=== PATIENT | female | born 1985 | race American Indian/Alaskan Native ===

== ENCOUNTER 2017-10-02 11:40 | Emergency (ER) | payer MEDICAID ==
[2017-10-02 11:54] VITALS: RESP 16
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
[2017-10-02 12:32] LABS: BASO # 0.1 K/uL (0.0-0.2); BASO % 0.9 % (0.0-2.0); EOS # 0.1 K/uL (0.0-0.7); EOS % 1.1 % (0.0-4.0); HEMOGLOBIN 12.1 g/dL (11.0-16.0); LYMPH # 2.1 K/uL (1.0-4.3); LYMPH % 30.8 % (20.0-40.0); MEAN CELL VOLUME 77.6 fL (81.0-99.0); MEAN CORPUSCULAR HEMOGLOBIN 25.7 pg (27.0-31.0); MEAN CORPUSCULAR HGB CONC 33.1 g/dL (33.0-37.0); MEAN PLATELET VOLUME 8.3 fL (7.2-11.7); MONO # 0.6 K/uL (0.0-0.8); MONO % 8.1 % (0.0-10.0); NEUT # 4.1 K/uL (1.8-7.0); NEUT % 59.1 % (50.0-75.0); RBC 4.7 Mil/uL (3.80-5.20); RED CELL DISTRIBUTION WIDTH 15.4 % (11.5-14.5); WHITE BLOOD COUNT 6.9 K/uL (4.8-10.8)
[2017-10-02 12:43] LABS: ALB/GLOB RATIO 1.2 (1.0-2.1); ALT/SGPT 25 U/L (9-52); AST/SGOT 24 U/L (14-36); BLOOD UREA NITROGEN 11 mg/dL (7-17); CALCIUM 8.7 mg/dl (8.6-10.4); GFR AFRICAN-AMERICAN > 60; GFR NON-AFRICAN AMERICAN > 60
[2017-10-02 12:54] LABS: HCG,QUALITATIVE URINE NEGATIVE (NEGATIVE)
[2017-10-02 13:04] LABS: SQUAMOUS EPITHIAL 5 /hpf (0-5); URINE BACTERIA RARE (<OCC); URINE BILIRUBIN NEGATIVE (NEGATIVE); URINE BLOOD NEGATIVE (NEGATIVE); URINE CLARITY Hazy (Clear); URINE COLOR Yellow (YELLOW); URINE GLUCOSE (UA) NORMAL (Normal); URINE LEUKOCYTE ESTERASE 2+ Leu/uL (Negative); URINE PROTEIN NEGATIVE (NEGATIVE); URINE UROBILINOGEN NORMAL mg/dL (0.2-1.0)
[2017-10-02 13:06] LABS: BARBITURATES, UR NEGATIVE (NEGATIVE); BENZODIAZEPINES, UR NEGATIVE (NEGATIVE); OPIATES, UR NEGATIVE (NEGATIVE); PHENCYCLIDINE, UR NEGATIVE (NEGATIVE)
[2017-10-02 14:33] VITALS: BP 111/67; PULSE 78; TEMP 98.1
[2017-10-02 18:26] VITALS: O2SAT 100
--- NOTE | 2017-10-04 13:02 | CARD ---
APPROVED REPORT EKG Measurement Heart [id number] MD [id number] <Conclusion> Normal sinus rhythm Nonspecific T wave abnormality Abnormal ECG
== END 2017-10-02 14:31 | disposition home or self-care (01) ==
LOC: C.ER 11:40
DX: R07.9 Chest pain, unspecified (principal); F32.9 Major depressive disorder, single episode, unspecified

== ENCOUNTER 2017-10-07 14:37 | Emergency (ER) | payer MEDICAID ==
[2017-10-07 14:50] VITALS: BP 120/84; PULSE 83; RESP 18; TEMP 98; O2SAT 98
[2017-10-07 14:53] VITALS: BMI 31.8
--- NOTE | 2017-10-07 15:14 | C.PDOC ---
History Of Present Illness 31-year-old female, presents to the emergency department with complaints of non- traumatic bilateral wrist pain and numbness, on and off for years. Additionally today she states she felt like she ate too much, had nausea and an episode of non-bloody/non-bilious vomiting after which she felt better. Patient states she missed work. Denies fever, chills, abdominal pain or any other associated symptoms. Time Seen by Provider: 10/07/17 15:02 Chief Complaint (Nursing): Flu-like Symptoms History Per: Patient History/Exam Limitations: no limitations Onset/Duration Of Symptoms: Days Current Symptoms Are (Timing): Still Present Severity: Moderate Past Medical History Reviewed: Historical Data, Nursing Documentation, Vital Signs Vital Signs: Last Vital Signs Temp 98.0 F 10/07/17 14:49 Pulse 83 10/07/17 14:49 Resp 18 10/07/17 14:49 BP 120/84 10/07/17 14:49 Pulse Ox 98 10/07/17 18:10 - Medical History PMH: No Chronic Diseases Family History: States: No Known Family Hx - Social History Hx Alcohol Use: No Hx Substance Use: No - Immunization History Hx Tetanus Toxoid Vaccination: No Hx Influenza Vaccination: Yes Hx Pneumococcal Vaccination: No Review Of Systems Constitutional: Negative for: Fever, Chills Respiratory: Negative for: Shortness of Breath Gastrointestinal: Positive for: Nausea, Vomiting Musculoskeletal: Positive for: Other (B/L wrist pain) Neurological: Negative for: Weakness, Numbness Physical Exam - Physical Exam Appears: Non-toxic, No Acute Distress Skin: Normal Color, Warm, Dry, No Rash Head: Atraumatic, Normacephalic Eye(s): bilateral: Normal Inspection, EOMI Nose: Normal Oral Mucosa: Moist Lips: Normal Appearing Neck: Normal ROM Chest: Symmetrical Cardiovascular: Rhythm Regular, No Murmur Respiratory: Normal Breath Sounds, No Accessory Muscle Use Gastrointestinal/Abdominal: Bowel Sounds, Soft, No Tenderness, No Distention, No Guarding Extremity: Normal ROM, No Tenderness, Capillary Refill (<2 sec), No Deformity, No Swelling Pulses: Left Radial: Normal, Right Radial: Normal Neurological/Psych: Oriented x3, Normal Speech Gait: Steady ED Course And Treatment O2 Sat by Pulse Oximetry: 98 (RA) Pulse Ox Interpretation: Normal Medical Decision Making Medical Decision Making: Patient with complaints of wrist pain and numbness for long time. Denies any trauma. Patient was seen in ED recently 10/02/16 with complete workup. She further states she just wants a note for work. Recommend analgesics and rx given. Disposition Counseled Patient/Family Regarding: Diagnosis, Need For Followup, Rx Given - Disposition Referrals: Baltazar He MD [Staff Provider] - [facility] [Outside] [facility] [Outside] Disposition: HOME/ ROUTINE Disposition Time: 15:14 Condition: GOOD Additional Instructions: Follow up with referral physician in 1-2 days without fail for further evaluation. Take medications as prescribed. Return to the emergency department at any time if symptoms persist or worsen. Prescriptions: Ibuprofen [Motrin] 600 mg PO Q8 #30 tab Instructions: Carpal Tunnel Syndrome Forms: [facility] (Thai), Work Excuse - POA Present On Arrival: None - Clinical Impression Clinical Impression: Carpal tunnel syndrome - Scribe Statement The provider has reviewed the documentation as recorded by the Scribe (Olive Zee) All medical record entries made by the Scribe were at my direction and personally dictated by me. I have reviewed the chart and agree that the record accurately reflects my personal performance of the history, physical exam, medical decision making, and the department course for this patient. I have also personally directed, reviewed, and agree with the discharge instructions and disposition.
== END 2017-10-07 15:36 | disposition home or self-care (01) ==
LOC: C.ER 14:37
DX: G56.03 Carpal tunnel syndrome, bilateral upper limbs (principal)

== ENCOUNTER 2017-11-02 19:56 | Emergency (ER) | payer MEDICAID ==
[2017-11-02 19:57] VITALS: BMI 31.8
[2017-11-02 20:07] VITALS: BP 117/78; PULSE 96; RESP 20; TEMP 98.7; O2SAT 100
--- NOTE | 2017-11-02 20:57 | C.PDOC ---
History Of Present Illness 31 year old female presents to the ED c/o nasal congestion, sore throat, dry cough for the past 2 days. Patient reports this morning she noticed some small amount of blood after she blew her nose which prompted the visit to the ED. Patient denies fever, chills, nausea, vomit, diarrhea, rash, recent travel, sick contacts. Time Seen by Provider: 11/02/17 20:28 Chief Complaint (Nursing): Cough, Cold, Congestion History Per: Patient History/Exam Limitations: no limitations Onset/Duration Of Symptoms: Days (2) Location Of Pain: Sinus/es Associated Symptoms: Cough, Nasal Congestion. denies: Fever Ear Symptoms: Bilateral: None Recent travel outside of the [place]: No Additional History Per: Patient Past Medical History Reviewed: Historical Data, Nursing Documentation, Vital Signs Vital Signs: Last Vital Signs Temp 98.7 F 11/02/17 20:05 Pulse 96 H 11/02/17 20:05 Resp 20 11/02/17 21:20 BP 117/78 11/02/17 20:05 Pulse Ox 100 11/02/17 20:57 - Medical History PMH: No Chronic Diseases Denies: Diabetes, Hepatitis, HIV, HTN, Seizures, Sexually Transmitted Disease Surgical History: No Surg Hx Family History: States: Unknown Family Hx - Social History Hx Alcohol Use: No Hx Substance Use: No - Immunization History Hx Tetanus Toxoid Vaccination: No Hx Influenza Vaccination: Yes Hx Pneumococcal Vaccination: No Review Of Systems Constitutional: Negative for: Fever, Chills ENT: Positive for: Nose Congestion, Throat Pain. Negative for: Ear Discharge Respiratory: Positive for: Cough. Negative for: Shortness of Breath Gastrointestinal: Negative for: Nausea, Vomiting, Abdominal Pain Skin: Negative for: Rash Physical Exam - Physical Exam Appears: Non-toxic, No Acute Distress Skin: Normal Color, Warm, Dry Head: Atraumatic, Normacephalic Eye(s): bilateral: Normal Inspection Ear(s): Bilateral: Normal Nose: No Discharge, Other (enlarged turbinates more on the left) Oral Mucosa: Moist Throat: Normal, No Erythema, No Exudate Neck: Normal ROM, Supple Respiratory: Normal Breath Sounds, No Rales, No Rhonchi, No Wheezing Extremity: Normal ROM, No Tenderness, No Swelling Neurological/Psych: Oriented x3, Normal Speech, Normal Motor, Normal Sensation Gait: Steady ED Course And Treatment O2 Sat by Pulse Oximetry: 100 (On RA) Pulse Ox Interpretation: Normal Progress Note: On reassessment, patient is resting comfortably, and is in no acute distress. Patient was instructed to follow up with physician/clinic in 1- 2 days for further evaluation. Disposition Counseled Patient/Family Regarding: Diagnosis, Need For Followup, Rx Given - Disposition Referrals: [facility] [Outside] Disposition: HOME/ ROUTINE Disposition Time: 20:54 Condition: STABLE Additional Instructions: Please follwo up in clinic Use medications as directed Return to ER if worse Prescriptions: Cetirizine HCl [Zyrtec] 10 mg PO DAILY #20 capsule Ibuprofen [Motrin] 600 mg PO Q6H #20 tab Mometasone Furoate [Nasonex] 2 spray NS DAILY #1 bottle Instructions: Seasonal Allergies (DC) Forms: [employer] (Macanese) - Clinical Impression Clinical Impression: Upper respiratory infection, Allergic rhinitis - PA / FIREFIGHTER / Resident Statement MD/DO has reviewed & agrees with the documentation as recorded. - Scribe Statement The provider has reviewed the documentation as recorded by the Scribe Vazquez Mukherjee All medical record entries made by the Scribe were at my direction and personally dictated by me. I have reviewed the chart and agree that the record accurately reflects my personal performance of the history, physical exam, medical decision making, and the department course for this patient. I have also personally directed, reviewed, and agree with the discharge instructions and disposition.
== END 2017-11-02 21:20 | disposition home or self-care (01) ==
LOC: C.ER 19:56
DX: J30.9 Allergic rhinitis, unspecified (principal); J06.9 Acute upper respiratory infection, unspecified

== ENCOUNTER 2017-11-11 15:53 | Emergency (ER) | payer MEDICAID ==
[2017-11-11 15:53] VITALS: BMI 31.8
[2017-11-11 16:01] VITALS: BP 145/92; PULSE 89; RESP 17; TEMP 98.1; O2SAT 99
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
== END 2017-11-11 17:08 | disposition home or self-care (01) ==
LOC: C.ER 15:53
DX: S00.83XA Contusion of other part of head, initial encounter (principal); S40.022A Contusion of left upper arm, initial encounter; S00.81XA Abrasion of other part of head, initial encounter; Y04.0XXA Assault by unarmed brawl or fight, initial encounter